=== PATIENT | male | born 1990 | race Hispanic/Latino ===

== ENCOUNTER 2018-08-09 06:40 | Emergency (ER) | payer SELFPAY ==
--- OUTSIDE RECORDS SUMMARY | 2018-08-09 06:42 | XMS REPORT | Clinical Summary ---
:1990 Author Organization [facility] Address [address] [place] [address] Care Team Providers Name Role Phone Asked, No Pcp Primary Care Provider Unavailable Allergies No Known Allergies Medications Medication Sig Dispensed Refills Start Date End Date Status polymyxin B Administer 1 drop 0.01 mL 0 11/11/2017 11/18/2017 sulf-trimethoprim to the right eye (POLYTRIM) 10,000 every 6 (six) unit- 1 mg/mL drops hours for 7 days. Active Problems Not on file Encounters Date Type Specialty Care Team Description 11/11/2017 Emergency Emergency Medicine Pramod Ramos, Conjunctivitis of right MD eye, unspecified conjunctivitis type (Primary Dx) after 08/08/2017 Social History Tobacco Use Types Packs/Day Years Used Date Never Smoker Smokeless Tobacco: Never Used Alcohol Use Drinks/Week oz/Week Comments Yes Sex Assigned at Date Recorded Not on file Job Start Date Occupation Industry Not on file Not on file Not on file Travel History Travel Start Travel End No recent travel history available. Last Filed Vital Signs Vital Sign Reading Time Taken Blood Pressure 137/71 11/11/2017 7:38 AM CDT Pulse 83 11/11/2017 7:38 AM CDT Temperature 36.7 C (98 F) 11/11/2017 7:38 AM CDT Respiratory Rate 16 11/11/2017 7:38 AM CDT Oxygen Saturation 99% 11/11/2017 7:38 AM CDT Inhaled Oxygen Concentration - - Weight 104 kg (230 lb) 11/11/2017 7:38 AM CDT Height 177.8 cm (5' 10") 11/11/2017 7:38 AM CDT Body Mass Index 33 11/11/2017 7:38 AM CDT Plan of Treatment Not on file Results Not on fileafter 08/08/2017 Advance Directives Patient has advance care planning documents on file. For more information, please contact:Aurelio Jean Baptiste[address] [place] [address]
--- NOTE | 2018-08-09 08:05 | EDPHYS ---
Physician Documentation [facility] Name: Pankaj Alanis Age: 27 yrs Sex: Male : 1990 Arrival Date: 08/09/2018 Time: 06:44 Bed 16 Private MD: DOT Physician Salomon Myrick HPI: 08/09 07:54 This 27 yrs old Male presents to ER via Ambulatory with complaints of Foreign valente Body In Throat. 07:54 The patient presents with sore throat. The patient describes throat pain as burning, valente constant. Onset: The symptoms/episode began/occurred 1 day(s) ago. Severity of symptoms: At their worst the symptoms were mild, moderate, in the emergency department the symptoms are unchanged. Modifying factors: The symptoms are alleviated by. Associated signs and symptoms: The patient has no apparent associated signs or symptoms. The patient has not experienced similar symptoms in the past. Historical: - Allergies: 06:47 No Known Allergies; ed1 - Home Meds: 06:47 None [Active]; ed1 - PMHx: 06:47 None; ed1 - PSHx: 06:47 None; ed1 - Immunization history:: Adult Immunizations unknown. - Social history:: Smoking status: Patient/guardian denies using tobacco. - Ebola Screening: : Patient negative for fever greater than or equal to 101.5 degrees Fahrenheit, and additional compatible Ebola Virus Disease symptoms Patient denies exposure to infectious person Patient denies travel to an Ebola-affected area in the 21 days before illness onset No symptoms or risks identified at this time. ROS: 07:58 Constitutional: Negative for fever, chills, and weight loss, Eyes: Negative for injury, valente pain, redness, and discharge, Neck: Negative for injury, pain, and swelling, Cardiovascular: Negative for chest pain, palpitations, and edema, Respiratory: Negative for shortness of breath, cough, wheezing, and pleuritic chest pain, Abdomen/GI: Negative for abdominal pain, nausea, vomiting, diarrhea, and constipation, Back: Negative for injury and pain, : Negative for injury, bleeding, discharge, and swelling, MS/Extremity: Negative for injury and deformity, Skin: Negative for injury, rash, and discoloration, Neuro: Negative for headache, weakness, numbness, tingling, and seizure, Psych: Negative for depression, anxiety, suicide ideation, homicidal ideation, and hallucinations, Allergy/Immunology: Negative for hives, rash, and allergies, Endocrine: Negative for neck swelling, polydipsia, polyuria, polyphagia, and marked weight changes, Hematologic/Lymphatic: Negative for swollen nodes, abnormal bleeding, and unusual bruising. 07:58 ENT: Positive for sinus congestion, sore throat. Exam: 07:58 Constitutional: This is a well developed, well nourished patient who is awake, alert, valente and in no acute distress. Head/Face: Normocephalic, atraumatic. Eyes: Pupils equal round and reactive to light, extra-ocular motions intact. Lids and lashes normal. Conjunctiva and sclera are non-icteric and not injected. Cornea within normal limits. Periorbital areas with no swelling, redness, or edema. Neck: Trachea midline, no thyromegaly or masses palpated, and no cervical lymphadenopathy. Supple, full range of motion without nuchal rigidity, or vertebral point tenderness. No Meningismus. Chest/axilla: Normal chest wall appearance and motion. Nontender with no deformity. No lesions are appreciated. Cardiovascular: Regular rate and rhythm with a normal S1 and S2. No gallops, murmurs, or rubs. Normal PMI, no JVD. No pulse deficits. Respiratory: Lungs have equal breath sounds bilaterally, clear to auscultation and percussion. No rales, rhonchi or wheezes noted. No increased work of breathing, no retractions or nasal flaring. Abdomen/GI: Soft, non-tender, with normal bowel sounds. No distension or tympany. No guarding or rebound. No evidence of tenderness throughout. Back: No spinal tenderness. No costovertebral tenderness. Full range of motion. Male : Normal genitalia with no discharge or lesions. Skin: Warm, dry with normal turgor. Normal color with no rashes, no lesions, and no evidence of cellulitis. MS/ Extremity: Pulses equal, no cyanosis. Neurovascular intact. Full, normal range of motion. Neuro: Awake and alert, GCS 15, oriented to person, place, time, and situation. Cranial nerves II-XII grossly intact. Motor strength 5/5 in all extremities. Sensory grossly intact. Cerebellar exam normal. Normal gait. Psych: Awake, alert, with orientation to person, place and time. Behavior, mood, and affect are within normal limits. 07:58 ENT: Posterior pharynx: Uvula: midline, edematous, erythema, swelling, erythema, that is mild. Vital Signs: 06:47 BP 132 / 69; Pulse 89; Resp 17; Temp 98.3(TE); Pulse Ox 98% on R/A; Weight 90.72 kg; ed1 Height 5 ft. 10 in. (177.80 cm); Pain 0/10; 07:47 BP 129 / 67; Pulse 87; Resp 16; Temp 98.2(O); Pulse Ox 100% on R/A; Pain 0/10; rb1 06:47 Body Mass Index 28.70 (90.72 kg, 177.80 cm) ed1 MDM: 07:17 Patient medically screened. [facility] 08:03 Data reviewed: vital signs, nurses notes. [facility] Administered Medications: 08:07 Drug: Decadron 10 mg Route: IM; Site: left deltoid; rb1 08:22 Follow up: Response: No adverse reaction rb1 08:07 Drug: Zithromax 500 mg Route: PO; rb1 08:22 Follow up: Response: No adverse reaction rb1 Disposition: 08/09/18 08:04 Discharged to Home. Impression: Acute pharyngitis. - Condition is Stable. - Discharge Instructions: Pharyngitis, Pharyngitis, Hsit-gd-Jogr, Sore Throat, Ldil-zi-Oaxy. - Prescriptions for Lorraine- D 12 Hour 60-120 mg Oral Tablet Sustained Release 12 hr - take 1 tablet by ORAL route every 12 hours As needed; 20 tablet. Medrol (Antoni) 4 mg Oral Tablets, Dose Pack - take 1 tablet by ORAL route as directed - follow package instructions; 1 packet. Zithromax 500 mg Oral Tablet - take 1 tablet by ORAL route once daily for 5 days; 5 tablet. - Medication Reconciliation Form, Thank You Letter, Antibiotic Education, Prescription Opioid Use form. - Follow up: Private Physician; When: 2 - 3 days; Reason: Recheck today's complaints, Continuance of care, Re-evaluation by your physician. - Problem is new. - Symptoms have improved. Signatures: Salomon Myrick MD MD cha Riggs, Erika RN RN ed1 Denise Mary, RN RN rb1 Corrections: (The following items were deleted from the chart) 08:24 08:04 08/09/2018 08:04 Discharged to Home. Impression: Acute pharyngitis. Condition is rb1 Stable. Forms are Medication Reconciliation Form, Thank You Letter, Antibiotic Education, Prescription Opioid Use. Follow up: Private Physician; When: 2 - 3 days; Reason: Recheck today's complaints, Continuance of care, Re-evaluation by your physician. Problem is new. Symptoms have improved. valente
--- NOTE | 2018-08-09 08:05 | ER ---
Nurse's Notes [facility] Name: Pankaj Alanis Age: 27 yrs Sex: Male : 1990 Arrival Date: 08/09/2018 Time: 06:44 Bed 16 Private MD: Diagnosis: Acute pharyngitis Presentation: 08/09 06:46 Presenting complaint: Patient states: Something is in my throat. Transition of care: ed1 patient was not received from another setting of care. Onset of symptoms was August 09, 2018. Risk Assessment: Do you want to hurt yourself or someone else? Patient reports no desire to harm self or others. Initial Sepsis Screen: Does the patient meet any 2 criteria? No. Patient's initial sepsis screen is negative. Does the patient have a suspected source of infection? No. Patient's initial sepsis screen is negative. Care prior to arrival: None. 06:46 Method Of Arrival: Ambulatory ed1 06:46 Acuity: TERRI 3 ed1 Triage Assessment: 06:47 General: Appears in no apparent distress. Behavior is calm, cooperative. Pain: Denies ed1 pain. Historical: - Allergies: 06:47 No Known Allergies; ed1 - Home Meds: 06:47 None [Active]; ed1 - PMHx: 06:47 None; ed1 - PSHx: 06:47 None; ed1 - Immunization history:: Adult Immunizations unknown. - Social history:: Smoking status: Patient/guardian denies using tobacco. - Ebola Screening: : Patient negative for fever greater than or equal to 101.5 degrees Fahrenheit, and additional compatible Ebola Virus Disease symptoms Patient denies exposure to infectious person Patient denies travel to an Ebola-affected area in the 21 days before illness onset No symptoms or risks identified at this time. Screenin:00 Abuse screen: Denies threats or abuse. Nutritional screening: No deficits noted. rb1 Tuberculosis screening: No symptoms or risk factors identified. Fall Risk None identified. Assessment: 07:00 General: Appears in no apparent distress. comfortable, Behavior is calm, cooperative. rb1 Pain: Denies pain. Neuro: Level of Consciousness is awake, alert, obeys commands, Oriented to person, place, time, situation. Cardiovascular: Capillary refill < 3 seconds is brisk in bilateral fingers. Respiratory: Airway is patent Respiratory effort is even, unlabored, Respiratory pattern is regular, symmetrical. GI: No signs and/or symptoms were reported involving the gastrointestinal system. : No signs and/or symptoms were reported regarding the genitourinary system. EENT: Throat is reddened Uvula is swollen and red.. Pt. denies pain, describes it as irritation. . Derm: Skin is dry, Skin is normal, Skin temperature is warm. 08:00 Reassessment: Patient appears in no apparent distress at this time. No changes from rb1 previously documented assessment. Family at bedside. 08:08 Reassessment: Discharge pending due to shot time. rb1 08:22 Reassessment: Patient appears in no apparent distress at this time. No adverse rb1 reactions noted at this time. 08:22 Respiratory: Airway is patent Respiratory effort is even, unlabored, Respiratory rb1 pattern is regular, symmetrical, Denies shortness of breath. Vital Signs: 06:47 BP 132 / 69; Pulse 89; Resp 17; Temp 98.3(TE); Pulse Ox 98% on R/A; Weight 90.72 kg; ed1 Height 5 ft. 10 in. (177.80 cm); Pain 0/10; 07:47 BP 129 / 67; Pulse 87; Resp 16; Temp 98.2(O); Pulse Ox 100% on R/A; Pain 0/10; rb1 06:47 Body Mass Index 28.70 (90.72 kg, 177.80 cm) ed1 ED Course: 06:44 Patient arrived in ED. es 06:47 Triage completed. ed1 06:47 Arm band placed on left wrist. ed1 07:00 Patient has correct armband on for positive identification. Bed in low position. Call rb1 light in reach. Side rails up X 1. Pulse ox on. NIBP on. 07:03 Denise Mary, JARRET is Primary Nurse. rb1 07:17 Salomon Myrick MD is Attending Physician. valente 08:24 No provider procedures requiring assistance completed. Patient did not have IV access rb1 during this emergency room visit. Administered Medications: 08:07 Drug: Decadron 10 mg Route: IM; Site: left deltoid; rb1 08:22 Follow up: Response: No adverse reaction rb1 08:07 Drug: Zithromax 500 mg Route: PO; rb1 08:22 Follow up: Response: No adverse reaction rb1 Outcome: 08:04 Discharge ordered by . valente 08:24 Discharged to home ambulatory, with family. rb1 08:24 Condition: stable 08:24 Discharge instructions given to patient, Instructed on discharge instructions, follow up and referral plans. medication usage, Demonstrated understanding of instructions, follow-up care, medications, Prescriptions given X 3. 08:24 Patient left the ED. rb1 Signatures: Salomon Myrick MD MD cha Salyer, Edna es Riggs, Erika RN RN ed1 Denise Mary, RN RN rb1 Corrections: (The following items were deleted from the chart) 08:23 08:22 Reassessment: Patient appears in no apparent distress at this time. No adverse rb1 reactions noted at this time. rb1
[2018-08-09] MEDS ORDERED: DEXAMETHASONE 10 MG/ML VIAL ONE (08:15)
[2018-08-09] MEDS ORDERED: AZITHROMYCIN 250 MG TAB ONE (08:15)
== END 2018-08-09 08:24 | disposition home or self-care (01) ==
LOC: ER 06:40
DX: J02.9 Acute pharyngitis, unspecified (principal)
CPT/HCPCS: 96372; 99283; J1100